=== PATIENT | male | born 1980 ===

== ENCOUNTER 2022-02-24 14:54 | Emergency (ER) | payer SELFPAY ==
[~2022-02-24] VITALS: Ht 162.6 cm; Wt 54.5 kg
[2022-02-24 15:07] VITALS: BP 103/71
== END 2022-02-24 18:19 | disposition left against medical advice (07) ==
LOC: ER 14:55
DX: M25.552 Pain in left hip (principal); Z53.21 Procedure and treatment not carried out due to patient leaving prior to being seen by health care provider

== ENCOUNTER 2022-03-04 13:34 | Emergency (ER) | payer MEDICAID ==
[~2022-03-04] VITALS: Ht 162.6 cm; Wt 54.5 kg
[2022-03-04 14:28] VITALS: BP 118/72
[2022-03-04] MEDS ORDERED: SULF1TAB49 PO (14:34)
== END 2022-03-04 18:43 | disposition home or self-care (01) ==
LOC: ER 13:35
DX: L02.416 Cutaneous abscess of left lower limb (principal); F17.200 Nicotine dependence, unspecified, uncomplicated; F12.90 Cannabis use, unspecified, uncomplicated; Z86.14 Personal history of Methicillin resistant Staphylococcus aureus infection; Z88.8 Allergy status to other drugs, medicaments and biological substances; Z79.2 Long term (current) use of antibiotics
CPT/HCPCS: 99283